=== PATIENT | female | born 1990 | race African-American/Black ===

== ENCOUNTER 2017-03-14 15:40 | Emergency (ER) | payer MEDICAID ==
[2017-03-14 15:40] VITALS: BP 136/98; PULSE 106; RESP 24; TEMP 98.4; O2SAT 100
[2017-03-14] MEDS ORDERED: SODIUM CHLOR 0.9% 1000 ML INJ 1,000 ML IV SCH (16:20)
--- NOTE | 2017-03-14 16:22 | PD ---
HPI Chief Complaint: Abdominal Pain Time Seen by Provider: 16:22 Travel History International Travel<30 days: No Contact w/Intl Traveler<30days: No Traveled to known affect area: No History of Present Illness HPI 26 year old female presents to emergency room for evaluation of significant right sided pain. Patient states that this happens intermittently but has been unbearable. Rates it a 10 out of 10, sharp, stabbing. States that she cannot keep comfortable. Reports that this happened last month and she was told that it was her ovaries. She was seen and evaluated a different hospital, one that she does not recall. Denies any fever or chills. The pain has caused her to be nauseous and vomiting. Denies any abdominal surgeries. No urinary symptoms. No changes in bowel habits. No other symptoms reported. PFSH Past Medical History Medical History: Denies Significant Hx ?: Unknown Social History Alcohol Use: No Tobacco Use: No Substance Use: No Allergies-Medications (Allergen,Severity, Reaction): Coded Allergies: No Known Allergies (Unverified , 03/14/17) Reported Meds & Prescriptions Reported Meds & Active Scripts Active Ultram (Tramadol HCl) 50 Mg Tab 50 Mg PO Q6H PRN Ibuprofen 600 Mg Tab 600 Mg PO Q8HR PRN Flomax (Tamsulosin HCl) 0.4 Mg Cap 0.4 Mg PO DAILY Cipro (Ciprofloxacin HCl) 500 Mg Tab 500 Mg PO BID 10 Days Review of Systems Except as stated in HPI: all other systems reviewed are Neg Physical Exam Narrative GENERAL: Well-nourished female patient, ambulatory, in moderate distress secondary to pain. SKIN: Focused skin assessment warm/dry. HEAD: Atraumatic. Normocephalic. EYES: Pupils equal and round. No scleral icterus. No injection or drainage. ENT: No nasal bleeding or discharge. Mucous membranes pink and moist. NECK: Trachea midline. No JVD. CARDIOVASCULAR: Elevated rate and rhythm. No murmur appreciated. RESPIRATORY: No accessory muscle use. Clear to auscultation. Breath sounds equal bilaterally. GASTROINTESTINAL: Abdomen soft, nondistended. Right upper quadrant and right flank tenderness to palpation. No guarding. No rebound tenderness.. Hepatic and splenic margins not palpable. MUSCULOSKELETAL: No obvious deformities. No clubbing. No cyanosis. No edema. NEUROLOGICAL: Awake and alert. No obvious cranial nerve deficits. Motor grossly within normal limits. Normal speech. PSYCHIATRIC: Appropriate mood and affect; insight and judgment normal. Data Data Last Documented VS Vital Signs Date Time Temp Pulse Resp B/P Pulse Ox O2 Delivery O2 Flow Rate FiO2 03/14/17 17:50 18 03/14/17 17:42 88 113/75 99 Room Air 03/14/17 15:40 98.4 Orders Complete Blood Count With Diff (03/14/17 16:20) Comprehensive Metabolic Panel (03/14/17 16:20) Lipase (03/14/17 16:20) Prothrombin Time / Inr (Pt) (03/14/17 16:20) Act Partial Throm Time (Ptt) (03/14/17 16:20) Urinalysis - C+S If Indicated (03/14/17 16:20) Iv Access Insert/Monitor (03/14/17 16:20) Ecg Monitoring (03/14/17 16:20) Oximetry (03/14/17 16:20) Sodium Chlor 0.9% 1000 Ml Inj (Ns 1000 M (03/14/17 16:20) Sodium Chloride 0.9% Flush (Ns Flush) (03/14/17 16:30) Ketorolac Inj (Toradol Inj) (03/14/17 16:30) Ed Urine Pregnancytest Poc (03/14/17 16:20) Ct Abd/Pel W Iv Contrast(Rout) (03/14/17 ) Ondansetron Inj (Zofran Inj) (03/14/17 16:30) Us Pelvis Comp W Dop Transvag (03/14/17 ) Urine Culture (03/14/17 16:29) Ceftriaxone Inj (Rocephin Inj) (03/14/17 17:15) Iohexol 350 Inj (Omnipaque 350 Inj) (03/14/17 18:48) Labs Laboratory Tests Test 03/14/17 16:29 White Blood Count 5.4 TH/MM3 Red Blood Count 4.49 MIL/MM3 Hemoglobin 13.0 GM/DL Hematocrit 39.2 % Mean Corpuscular Volume 87.3 FL Mean Corpuscular Hemoglobin 29.0 PG Mean Corpuscular Hemoglobin 33.2 % Concent Red Cell Distribution Width 12.5 % Platelet Count 253 TH/MM3 Mean Platelet Volume 7.3 FL Neutrophils (%) (Auto) 48.7 % Lymphocytes (%) (Auto) 32.2 % Monocytes (%) (Auto) 10.5 % Eosinophils (%) (Auto) 7.8 % Basophils (%) (Auto) 0.8 % Neutrophils # (Auto) 2.6 TH/MM3 Lymphocytes # (Auto) 1.7 TH/MM3 Monocytes # (Auto) 0.6 TH/MM3 Eosinophils # (Auto) 0.4 TH/MM3 Basophils # (Auto) 0.0 TH/MM3 CBC Comment DIFF FINAL Differential Comment Prothrombin Time 11.2 SEC Prothromb Time International 1.0 RATIO Ratio Activated Partial 26.3 SEC Thromboplast Time Urine Color YELLOW Urine Turbidity CLOUDY Urine pH 8.5 Urine Specific [place] 1.023 Urine Protein 30 mg/dL Urine Glucose (UA) NEG mg/dL Urine Ketones NEG mg/dL Urine Occult Blood MOD Urine Nitrite NEG Urine Bilirubin NEG Urine Urobilinogen LESS THAN 2.0 MG/DL Urine Leukocyte Esterase SMALL Urine RBC 109 /hpf Urine WBC 33 /hpf Urine WBC Clumps MANY Urine Squamous Epithelial 3 /hpf Cells Urine Mucus MOD /lpf Microscopic Urinalysis Comment CULTURE INDICATED Sodium Level 140 MEQ/L Potassium Level 3.3 MEQ/L Chloride Level 104 MEQ/L Carbon Dioxide Level 26.9 MEQ/L Anion Gap 9 MEQ/L Blood Urea Nitrogen 10 MG/DL Creatinine 0.99 MG/DL Estimat Glomerular Filtration 67 ML/MIN Rate Random Glucose 95 MG/DL Calcium Level 9.1 MG/DL Total Bilirubin 0.5 MG/DL Aspartate Amino Transf 22 U/L (AST/SGOT) Alanine Aminotransferase 24 U/L (ALT/SGPT) Alkaline Phosphatase 61 U/L Total Protein 7.5 GM/DL Albumin 4.3 GM/DL Lipase 145 U/L [facility] Medical Decision Making Medical Screen Exam Complete: Yes Emergency Medical Condition: Yes Medical Record Reviewed: Yes Differential Diagnosis Renal calculi versus UTI versus cholecystitis versus cholelithiasis Narrative Course 18 year-old female presents to emergency department for evaluation. Patient is in moderate distress secondary to pain. She is given IV Toradol and this helps almost immediately ease her pain. She is able to lie down in the bed after medication is administered. CBC and CMP are without acute concern. Lipase is 145. Urinalysis is cloudy with 30 proteinuria, moderate occult blood, small leukocyte esterase, 29 RBC, 33 WBC, many WBC clumps, moderate mucus. Cultures indicated. Patient is given a gram Rocephin. Ultrasound shows essentially normal for a patient this age. There is a 17 mm left ovarian cyst with trace free fluid in the cul-de-sac most likely physiologic. There are subcentimeter follicles on both sides. No torsion. Normal uterus. CT of the abdomen and pelvis shows mild obstructive uropathy on the right related to 2.5 mm ureterovesical junction stone. Stone is visualized on the initial forensic nurse radiograph of multiple similar sized phleboliths are seen nearby. 2 mm less bilateral nonobstructing renal stones are identified. Patient remains comfortable. I discussed with her the findings of the radiology and lab reports. She is encouraged to seek urology evaluation. She will also be started on oral antibiotics. She agrees to return immediately with any acute worsening symptoms Diagnosis Primary Impression: Kidney stone Additional Impression: UTI (urinary tract infection) Qualified Code: N39.0 - Urinary tract infection with hematuria, site unspecified Referrals: Primary Care Physician Urologist Patient Instructions: General Instructions, Kidney Stones (ED) Departure Forms: Tests/Procedures, Work Release Enter return to work date: Mar 17, 2017 Additional Instructions: Maintain adequate oral hydration Follow-up with her primary care provider Seek urology evaluation Return immediately with any acute worsening of symptoms Med/Other Pt SpecificInfo: Prescription(s) given Scripts Tramadol (Ultram)50 Mg Tab50 Mg PO Q6H PRN (PAIN GREATER THAN 6) #15 TAB Ref 0 Prov:Maurice Murray MD 03/14/17 Ibuprofen 600 Mg [id number] Mg PO Q8HR PRN (PAIN) #30 TAB Ref 0 Prov:Claribel Moore 03/14/17 Tamsulosin (Flomax)0.4 Mg Cap0.4 Mg PO DAILY #5 CAP Ref 0 Prov:Claribel Moore 03/14/17 Ciprofloxacin (Cipro)500 Mg [id number] Mg PO BID 10 Days Ref 0 Prov:Claribel Moore 03/14/17 Disposition: 01 DISCHARGE HOME Condition: Stable Claribel Moore Mar 14, 2017 16:22
[2017-03-14] MEDS ORDERED: KETOROLAC TROMETHAMINE 30 MG/ML (IVP) VIAL IVP ONE (16:30)
[2017-03-14] MEDS ORDERED: SODIUM CHLORIDE 0.9% FLUSH 10 ML FLUSH IV FLUSH PRN (16:30)
[2017-03-14] MEDS ORDERED: ONDANSETRON HCL 4 MG/2 ML VIAL IV PUSH ONE (16:30)
[2017-03-14 16:47] LABS: AUTOMATED NEUTROPHIL # 2.6 TH/MM3 (1.8-7.7); BASOPHIL % 0.8 % (0.0-2.0); EOSINOPHIL # 0.4 TH/MM3 (0-0.4); EOSINOPHIL % 7.8 % (0.0-4.0); HEMATOCRIT 39.2 % (35.0-46.0); HEMO FLAGS DIFF FINAL; LYMPH % 32.2 % (9.0-44.0); LYMPHOCYTE # 1.7 TH/MM3 (1.0-4.8); MEAN CELL VOLUME 87.3 FL (80.0-100.0); MEAN CORPUSCULAR HGB CONC 33.2 % (32.0-36.0); MONO % 10.5 % (0.0-8.0); NEUT % 48.7 % (16.0-70.0); PLATELET COUNT 253 TH/MM3 (150-450); RED BLOOD COUNT 4.49 MIL/MM3 (4.00-5.30); RED CELL DISTRIBUTION WIDTH 12.5 % (11.6-17.2); WHITE BLOOD COUNT 5.4 TH/MM3 (4.0-11.0)
[2017-03-14 16:58] LABS: BLOOD, URINE MOD (NEG); COMMENT (UR) CULTURE INDICATED; CULTURE IF INDICATED CULTURE INDICATED; GLUCOSE,URINE NEG (NEG); KETONE, URINE NEG (NEG); MUCUS URINE MOD /lpf (OCC); NITRITE,URINE NEG (NEG); PH, URINE 8.5 (5.0-8.5); SQUAMOUS EPITHELIAL CELL URINE 3 /hpf (0-5); URINE COLOR YELLOW (YELLW/STRAW)
[2017-03-14 16:59] LABS: APTT (PATIENT) 26.3 SEC (24.3-30.1); PROTHROMBIN TIME - PATIENT 11.2 SEC (9.8-11.6)
[2017-03-14 17:14] LABS: ANION GAP 9 MEQ/L (5-15); AST (GOT) 22 U/L (15-37); BICARBONATE 26.9 MEQ/L (21.0-32.0); BLOOD UREA NITROGEN 10 MG/DL (7-18); CHLORIDE 104 MEQ/L (98-107); GLOMERULAR FILTRATION RATE 67 ML/MIN (>89); POTASSIUM 3.3 MEQ/L (3.5-5.1); SODIUM (NA) 140 MEQ/L (136-145)
[2017-03-14 17:15] LABS: ALT (GPT) 24 U/L (10-53)
[2017-03-14] MEDS ORDERED: cefTRIAXone INJ 1,000 MG in SODIUM CHLORIDE 0.9% INJ 100 ML IV ONE (17:15)
[2017-03-14 17:17] LABS: ALKALINE PHOSPHATASE 61 U/L (45-117); TOTAL BILIRUBIN ADULT 0.5 MG/DL (0.2-1.0)
[2017-03-14 17:42] VITALS: BP 113/75; PULSE 88; RESP 18; O2SAT 99
[2017-03-14 17:50] VITALS: RESP 18
--- NOTE | 2017-03-14 18:40 | RADRPT ---
EXAM DATE/TIME: 03/14/2017 17:17 [facility] COMPARISON: No previous studies available for comparison. INDICATIONS : Pelvic pain. MEDICAL HISTORY : Lupus. . Ovarian cyst. SURGICAL HISTORY : None. ENCOUNTER: Initial ACUITY: 1 day PAIN SCORE: 5/10 LOCATION: Bilateral pelvis MEASUREMENTS: UTERUS: 8.4 x 5.7 x 4.7 cm ENDOMETRIAL STRIPE: 8 mm RIGHT OVARY: 3.3 x 2.5 x 1.9 cm LEFT OVARY: 3.4 x 2.1 x 1.7 cm FINDINGS: UTERUS: The myometrium has homogeneous echotexture without mass. RIGHT OVARY: Normal blood flow demonstrated. There are subcentimeter follicles. LEFT OVARY: Normal blood flow demonstrated. There are subcentimeter follicles and a slightly more dominant 17 mm cyst. MISCELLANEOUS: Trace free fluid in the pelvic cul-de-sac. CONCLUSION: Essentially normal for a patient this age. 70 mm mm left ovarian cyst and trace free fluid in the cul -de-sac are most likely physiologic. There are subcentimeter follicles on both sides. No torsion. Nor mal uterus. Syed Dejesus MD on March 14, 2017 at 18:35 Board Certified Radiologist. This report was verified electronically.
[2017-03-14] MEDS ORDERED: IOHEXOL 350 MG/ML 10 ML VIAL (for RAD DIAG) IV ONE (18:48)
--- NOTE | 2017-03-14 19:01 | RADRPT ---
EXAM DATE/TIME: 03/14/2017 18:43 [facility] COMPARISON: No previous studies available for comparison. INDICATIONS : Severe right side abdominal pain, nausea, vomiting. IV CONTRAST: 71 cc Omnipaque 350 (iohexol) IV ORAL CONTRAST: No oral contrast ingested. RADIATION DOSE: 5.25 CTDIvol (mGy) MEDICAL HISTORY : Lupus. SURGICAL HISTORY : None. ENCOUNTER: Initial ACUITY: 1 day PAIN SCALE: 8/10 LOCATION: Right lower quadrant TECHNIQUE: Volumetric scanning of the abdomen and pelvis was performed. Using automated exposure control and ad justment of the mA and/or kV according to patient size, radiation dose was kept as low as reasonably achievable to obtain optimal diagnostic quality images. FINDINGS: LOWER LUNGS: The visualized lower lungs are clear. LIVER: Homogeneous density without lesion. There is no dilation of the biliary tree. No calcified gallston es. SPLEEN: Normal size without lesion. PANCREAS: Within normal limits. KIDNEYS: 2.5 mm stone seen of the right ureterovesical junction causing mild hydronephrosis and hydroureter. T here are 1 mm nonobstructing stones of the right upper and mid poles and a 2 mm nonobstructing left m id zone stone. Numerous phleboliths are seen in the abdominal and pelvic cavities. Normal appendix. ADRENAL GLANDS: Within normal limits. VASCULAR: There is no aortic aneurysm. BOWEL/MESENTERY: The stomach, small bowel, and colon demonstrate no acute abnormality. There is no free intraperitone al air or fluid. ABDOMINAL WALL: Within normal limits. RETROPERITONEUM: There is no lymphadenopathy. BLADDER: No wall thickening or mass. REPRODUCTIVE: Within normal limits. INGUINAL: There is no lymphadenopathy or hernia. MUSCULOSKELETAL: Within normal limits for patient age. CONCLUSION: 1. Mild obstructive uropathy on the right related to a 2.5 mm ureterovesical junction stone. The ston e is visualized on the initial park manager radiograph but multiple similar sized phleboliths are seen nearb y. 2. 2 mm or less bilateral nonobstructing renal stones. Syed Dejesus MD on March 14, 2017 at 18:54 Board Certified Radiologist. This report was verified electronically.
[2017-03-14] MEDS ORDERED: CIPR-9 PO (19:09)
[2017-03-14] MEDS ORDERED: TAMS5CAP PO (19:09)
[2017-03-14] MEDS ORDERED: IBUP-232 PO (19:09)
[2017-03-14] MEDS ORDERED: ULTR50TA5 PO (19:11)
== END 2017-03-14 20:05 | disposition home or self-care (01) ==
LOC: NEPC 15:40
DX: N20.2 Calculus of kidney with calculus of ureter (principal); N39.0 Urinary tract infection, site not specified; B96.89 Other specified bacterial agents as the cause of diseases classified elsewhere; R31.9 Hematuria, unspecified; R80.9 Proteinuria, unspecified
CPT/HCPCS: 74177; 76830; 76856; 80053; 81001; 83690; 84703; 85025; 85610; 85730; 87086; 93975; 96361; 96365; 96375; 99285; J0696; J1885; J2405; J7030; Q9967

== ENCOUNTER 2017-04-29 08:34 | Emergency (ER) | payer SELFPAY ==
[~2017-04-29 08:34] MED LIST: CIPR-9 PO; IBUP-232 PO; TAMS5CAP PO; ULTR50TA5 PO
[2017-04-29 08:36] VITALS: BP 116/73; PULSE 66; RESP 20; TEMP 98.7; O2SAT 100
== END 2017-04-29 12:13 | disposition left against medical advice (07) ==
LOC: NED 08:34
DX: Z53.21 Procedure and treatment not carried out due to patient leaving prior to being seen by health care provider (principal)
CPT/HCPCS: 84703; 99281

== ENCOUNTER 2017-04-29 10:55 | Emergency (ER) | payer MEDICAID, OTHER ==
[~2017-04-29] VITALS: Ht 162.6 cm; Wt 59.0 kg
[2017-04-29 10:56] VITALS: BP 115/62; PULSE 66; RESP 16; TEMP 98.1; O2SAT 100
--- NOTE | 2017-04-29 11:00 | PD ---
Physical Exam Time Seen by Provider: 10:59 Narrative 27yo F c/o RLQ abd pain x 2 days. +frequent urination. LMP April 13. Familia fever, vomiting. Patient seen in triage. VS reviewed. Patient awaiting bed placement. Data Data Last Documented VS Vital Signs Date Time Temp Pulse Resp B/P Pulse Ox O2 Delivery O2 Flow Rate FiO2 04/29/17 10:56 98.1 66 16 115/62 100 MDM Supervised Visit with ARRON: Lorri Morrow Apr 29, 2017 11:00
[2017-04-29 12:17] LABS: BACTERIA, URINE OCC /hpf; BLOOD, URINE NEG (NEG); COMMENT (UR) CULT NOT INDICATED; CULTURE IF INDICATED CULT NOT INDICATED; GLUCOSE,URINE NEG (NEG); KETONE, URINE NEG (NEG); MUCUS URINE FEW /lpf (OCC); NITRITE,URINE NEG (NEG); PH, URINE 6.5 (5.0-8.5); SQUAMOUS EPITHELIAL CELL URINE 1 /hpf (0-5); URINE COLOR LIGHT-YELLOW (YELLW/STRAW)
[2017-04-29 14:27] VITALS: BP 115/58; PULSE 68; RESP 18; TEMP 98.3; O2SAT 99
--- NOTE | 2017-04-29 14:56 | PD ---
HPI Chief Complaint: Abdominal Pain Time Seen by Provider: 14:35 Travel History International Travel<30 days: No Contact w/Intl Traveler<30days: No Traveled to known affect area: No History of Present Illness HPI 27yo F presents to the ED with c/o right sided abdominal pain for 2 days. States it is throbbing and nonradiating. States that she has had similar abdominal pain for 6 months and occurs every month. +Increased urinary frequency. Denies any fever, chest pain, sob, n/v, dysuria, hematuria, vaginal bleeding or discharge. Pt denies vaginal discharge but states it is kind of foul smelling and she is concern about yeast infection since she has been on antibiotics. Pt was seen here on 03/14/17 for same right abdominal pain and had CTa/p that showed right UVJ stone and US that showed left ovarian cyst. Pt also had urine culture that grew mixed amparo. PFSH Past Medical History Autoimmune Disease: Yes (LUPUS) Immune Disorder: Yes (lupus) Tetanus Vaccination: Unknown ?: Not LMP: APRIL 13, 2017 Past Surgical History Surgical History: No Previous Surgery Social History Alcohol Use: No Tobacco Use: No Substance Use: No Allergies-Medications (Allergen,Severity, Reaction): Coded Allergies: No Known Allergies (Unverified , 04/29/17) Reported Meds & Prescriptions Reported Meds & Active Scripts Active No Active Prescriptions or Reported Medications Review of Systems Except as stated in HPI: all other systems reviewed are Neg Physical Exam Narrative GEN: 27yo F not in distress. SKIN: Warm and dry. HEAD: Normocephalic, atraumatic. CV: S1, S2. Lungs: CTA B/L, equal breath sounds. Abd: soft, nontender. Nondistended. No rebound tenderness or guarding. PELVIC: +White vaginal discharge. No blood. No CMT or adnexal tenderness bilaterally. Ext: soft edema. NEURO: No focal neurologic deficits. Data Data Last Documented VS Vital Signs Date Time Temp Pulse Resp B/P Pulse Ox O2 Delivery O2 Flow Rate FiO2 04/29/17 14:27 18 04/29/17 14:27 98.3 68 115/58 99 Room Air Orders Urinalysis - C+S If Indicated (04/29/17 11:04) Ed Urine Pregnancytest Poc (04/29/17 11:04) Complete Blood Count With Diff (04/29/17 14:46) Comprehensive Metabolic Panel (04/29/17 14:46) Gc And Chlamydia Pcr (04/29/17 15:46) Wet Prep Profile (04/29/17 15:46) Labs Laboratory Tests Test 04/29/17 04/29/17 04/29/17 11:00 15:15 15:45 Urine Color LIGHT-YELLOW Urine Turbidity CLEAR Urine pH 6.5 Urine Specific [place] 1.011 Urine Protein NEG mg/dL Urine Glucose (UA) NEG mg/dL Urine Ketones NEG mg/dL Urine Occult Blood NEG Urine Nitrite NEG Urine Bilirubin NEG Urine Urobilinogen LESS THAN 2.0 MG/DL Urine Leukocyte Esterase NEG Urine RBC 3 /hpf Urine WBC 1 /hpf Urine Squamous Epithelial 1 /hpf Cells Urine Bacteria OCC /hpf Urine Mucus FEW /lpf Microscopic Urinalysis Comment CULT NOT INDICATED White Blood Count 6.6 TH/MM3 Red Blood Count 4.25 MIL/MM3 Hemoglobin 12.4 GM/DL Hematocrit 37.6 % Mean Corpuscular Volume 88.4 FL Mean Corpuscular Hemoglobin 29.2 PG Mean Corpuscular Hemoglobin 33.1 % Concent Red Cell Distribution Width 12.5 % Platelet Count 266 TH/MM3 Mean Platelet Volume 6.4 FL Neutrophils (%) (Auto) 50.9 % Lymphocytes (%) (Auto) 31.5 % Monocytes (%) (Auto) 8.2 % Eosinophils (%) (Auto) 8.8 % Basophils (%) (Auto) 0.6 % Neutrophils # (Auto) 3.3 TH/MM3 Lymphocytes # (Auto) 2.1 TH/MM3 Monocytes # (Auto) 0.5 TH/MM3 Eosinophils # (Auto) 0.6 TH/MM3 Basophils # (Auto) 0.0 TH/MM3 CBC Comment DIFF FINAL Differential Comment Sodium Level 142 MEQ/L Potassium Level 3.7 MEQ/L Chloride Level 107 MEQ/L Carbon Dioxide Level 29.3 MEQ/L Anion Gap 6 MEQ/L Blood Urea Nitrogen 15 MG/DL Creatinine 0.83 MG/DL Estimat Glomerular Filtration 98 ML/MIN Rate Random Glucose 78 MG/DL Calcium Level 8.7 MG/DL Total Bilirubin 0.2 MG/DL Aspartate Amino Transf 11 U/L (AST/SGOT) Alanine Aminotransferase 21 U/L (ALT/SGPT) Alkaline Phosphatase 55 U/L Total Protein 7.0 GM/DL Albumin 3.7 GM/DL Clue Cells (Wet Prep) NONE SEEN Vaginal Trichomonas (Wet Prep) NONE SEEN Vaginal Yeast (Wet Prep) NONE SEEN MDM Medical Decision Making Medical Screen Exam Complete: Yes Emergency Medical Condition: Yes Differential Diagnosis Menstrual cramps vs. UTI vs. candidiasis vs. bacterial vaginosis Narrative Course 27yo F with lower abdominal pain that occurs every month for 6 months. Pt has no abdominal pain on exam. States it has resolved. Labs reviewed, no leukocytosis. CMP unremarkable. UA negative. Wet prep negative. Return precautions given. Diagnosis Primary Impression: Abdominal pain Qualified Code: R10.9 - Abdominal pain, unspecified location Patient Instructions: General Instructions Departure Forms: Tests/Procedures Additional Instructions: Please follow up with your PMD in 3-7 days. Return to the ED if symptoms worsen. Med/Other Pt SpecificInfo: No Change to Meds Scripts No Active Prescriptions or Reported Meds Disposition: 01 DISCHARGE HOME Condition: Stable StoutAnayeliNidia DO Apr 29, 2017 14:56
[2017-04-29 15:40] LABS: AUTOMATED NEUTROPHIL # 3.3 TH/MM3 (1.8-7.7); BASOPHIL % 0.6 % (0.0-2.0); EOSINOPHIL # 0.6 TH/MM3 (0-0.4); EOSINOPHIL % 8.8 % (0.0-4.0); HEMATOCRIT 37.6 % (35.0-46.0); HEMO FLAGS DIFF FINAL; LYMPH % 31.5 % (9.0-44.0); LYMPHOCYTE # 2.1 TH/MM3 (1.0-4.8); MEAN CELL VOLUME 88.4 FL (80.0-100.0); MEAN CORPUSCULAR HEMOGLOBIN 29.2 PG (27.0-34.0); MEAN CORPUSCULAR HGB CONC 33.1 % (32.0-36.0); MONO % 8.2 % (0.0-8.0); NEUT % 50.9 % (16.0-70.0); PLATELET COUNT 266 TH/MM3 (150-450); RED BLOOD COUNT 4.25 MIL/MM3 (4.00-5.30); RED CELL DISTRIBUTION WIDTH 12.5 % (11.6-17.2); WHITE BLOOD COUNT 6.6 TH/MM3 (4.0-11.0)
[2017-04-29 15:57] LABS: ANION GAP 6 MEQ/L (5-15); AST (GOT) 11 U/L (15-37); BICARBONATE 29.3 MEQ/L (21.0-32.0); BLOOD UREA NITROGEN 15 MG/DL (7-18); CHLORIDE 107 MEQ/L (98-107); GLOMERULAR FILTRATION RATE 98 ML/MIN (>89); POTASSIUM 3.7 MEQ/L (3.5-5.1); SODIUM (NA) 142 MEQ/L (136-145)
[2017-04-29 16:01] LABS: ALKALINE PHOSPHATASE 55 U/L (45-117); ALT (GPT) 21 U/L (10-53); TOTAL BILIRUBIN ADULT 0.2 MG/DL (0.2-1.0)
[2017-04-29 21:20] LABS: CHLAMYDIA PCR NOT DETECTED (NOT DETECT); NEISSERIA PCR NOT DETECTED (NOT DETECT)
== END 2017-04-29 17:35 | disposition home or self-care (01) ==
LOC: NEPD 10:55
DX: R10.31 Right lower quadrant pain (principal); M32.9 Systemic lupus erythematosus, unspecified
CPT/HCPCS: 80053; 81001; 84703; 85025; 87210; 87491; 87591; 99283